=== PATIENT | female | born 1950 | race Caucasian/White ===

== ENCOUNTER 2017-11-21 12:18 | Emergency (ER) | payer OTHER, MEDICARE ==
[~2017-11-21] VITALS: Ht 170.2 cm; Wt 65.3 kg
--- NOTE | 2017-11-21 14:23 | RADIOLOGY REPORT ---
EXAMINATION: XR HUMERUS, RIGHT XR SHOULDER, RIGHT CLINICAL INFORMATION: Concern for humeral fracture. COMPARISON: None TECHNIQUE: 3 views of the right shoulder and 2 views of the right humerus. FINDINGS: RIGHT SHOULDER: Mildly impacted and comminuted humeral neck fracture which has minimal apex anterior angulation. Ossification injecting over the inferior rim of the glenoid may represent a small displaced fracture fragment. Glenohumeral alignment appears preserved. Mild acromioclavicular osteoarthritis. No abnormal soft tissue calcifications. RIGHT HUMERUS: Mildly impacted humeral neck fracture with mild apex anterior angulation. The remainder of the humerus is unremarkable. No abnormal soft tissue calcifications. IMPRESSION: Mildly impacted and comminuted humeral neck fracture. Mild acromioclavicular osteoarthritis.
--- NOTE | 2017-11-21 14:36 | ED UPPER/LOWER EXTREMITY COMPL ---
History of Present Illness General Chief Complaint: Upper Extremity Injury Stated Complaint: S/P FALL RT ARM PAIN Source: patient Exam Limitations: no limitations Vital Signs & Intake/Output Vital Signs & Intake/Output Vital Signs Date Time Temp Pulse Resp B/P B/P Pulse O2 O2 Flow FiO2 Mean Ox Delivery Rate 11/21 1438 Room Air 11/21 1245 97.8 73 16 168/95 97 Room Air Allergies Coded Allergies: NO KNOWN ALLERGIES (08/30/13) Reconcile Medications Ibuprofen 400 MG TABLET 1 TAB PO TID PRN PAIN Oxycodone HCl/Acetaminophen (Percocet 5-325 MG Tablet) 5 MG-325 MG TABLET 1 TAB PO BID PRN BREAKTHROUGH PAIN Triage Note: 67F C/O UPPER RIGHT ARM PAIN S/P FALL AT 0800 ONTO RIGHT SIDE ON THE ICE. DENIES HEADSTRIKE OR LOC. AMBULATES WITHOUT ISSUE. TOOK ASPIRIN 365 FOR PAIN AND IS ON COUMADIN. PAIN 09/08 Triage Nurses Notes Reviewed? yes Onset: Abrupt Duration: hour(s): (6) Timing: single episode today Severity: moderate, severe Pain/Injury Location: Left: Shoulder. Method of Injury: fall Modifying Factors: Worsens With: movement. HPI: This is a 67-year-old female presents to the ER for chief complaint of right shoulder pain since 8 AM. She states she was going to put mail mailbox when she slipped and fell and landed on her right shoulder. No head trauma or loss of consciousness. Shoulder has been hurting ever since. Worse with range of motion. She is right-hand dominant. No numbness or tingling. Denies any rib pain chest pain abdominal pain or back pain. Denies flank short of breath. She states she took an aspirin earlier in the day. Past History Travel History Traveled to [place] past 21 day No Medical History Any Pertinent Medical History? see below for history Neurological: NONE EENT: NONE Cardiovascular: myocardial infarction, [facility]W PACEM[employer]ER Respiratory: NONE Gastrointestinal: NONE Hepatic: NONE Renal: NONE Musculoskeletal: NONE Psychiatric: NONE Endocrine: NONE Blood Disorders: NONE Cancer(s): NONE Surgical History Surgical History: non-contributory Psychosocial History What is your primary language Albanian Tobacco Use: Never used Family History Hx Contributory? No Review of Systems Review of Systems Constitutional: Denies: chills, fever. EENTM: Reports: no symptoms. Respiratory: Denies: cough, short of breath. Cardiovascular: Denies: chest pain. Gastrointestinal/Abdominal: Reports: no symptoms. Genitourinary: Reports: no symptoms. Musculoskeletal: Denies: joint pain, joint swelling, muscle pain, muscle stiffness. Skin: Reports: no symptoms. Neurological/Psychological: Reports: no symptoms. Hematologic/Endocrine: Denies: bruising, bleeding, polyuria, polydipsia. Immunological: Reports: no symptoms. All Other Systems: Reviewed and Negative Physical Exam Physical Exam General Appearance: well developed/nourished, mild distress Head: atraumatic Eyes: Bilateral: PERRL, EOMI. Ears, Nose, Throat: normal pharynx, normal ENT inspection, hearing grossly normal Neck: normal inspection, supple Cardiovascular/Respiratory: regular rate/rhythm Peripheral Pulses: 2+ radial (R), 2+ radial (L) Back: normal inspection Shoulder Left: swelling, bone tenderness, deformity, pain, soft tissue tenderness, limited range of motion Shoulder Right: normal range of motion, normal inspection Elbow Left: normal range of motion, normal inspection Elbow Right: normal range of motion, normal inspection Hand Left: normal inspection, normal range of motion Hand Right: normal inspection, normal range of motion Skin: intact, normal color, warm/dry Lymphatic: no anterior cervical supriya Progress Differential Diagnosis: dislocation, fracture, sprain Plan of Care: Orders Procedure Date/time Status Durable Medical Equipment 11/21 1434 Active Current Medications Sig/Vanessa Start time Last Medication Dose Stop Time Status Admin Ondansetron HCl 4 MG ONCE ONE 11/21 1445 UNVr 11/21 (Zofran) 11/21 1446 1445 Oxycodone/ 1 TAB ONCE ONE 11/21 1445 UNVr 11/21 Acetaminophen 11/21 1446 1445 (Percocet) XRAY SHOWS PROX HUMERUS FRACTURE, SHOULDER IMMOBILIZER PLACED. ZOFRAN, PERCOCET ORDERED. Diagnostic Imaging: Viewed by Me: Radiology Read. Discussed w/RAD: Radiology Read. Radiology Impression: PATIENT: QUEENIE NOGUERA PRESENT AGE: 67 PATIENT ACCOUNT NO: [id number] : 52 LOCATION: [facility] ORDERING PHYSICIAN: William PUGH SERVICE DATE: 11/21/173 EXAM TYPE: RAD - XRY- HUMERUS, RIGHT; XRY-SHOULDER COMPLETE-RIGHT EXAMINATION: XR HUMERUS, RIGHT XR SHOULDER, RIGHT CLINICAL INFORMATION: Concern for humeral fracture. COMPARISON: None TECHNIQUE: 3 views of the right shoulder and 2 views of the right humerus. FINDINGS: RIGHT SHOULDER: Mildly impacted and comminuted humeral neck fracture which has minimal apex anterior angulation. Ossification injecting over the inferior rim of the glenoid may represent a small displaced fracture fragment. Glenohumeral alignment appears preserved. Mild acromioclavicular osteoarthritis. No abnormal soft tissue calcifications. RIGHT HUMERUS: Mildly impacted humeral neck fracture with mild apex anterior angulation. The remainder of the humerus is unremarkable. No abnormal soft tissue calcifications. IMPRESSION: Mildly impacted and comminuted humeral neck fracture. Mild acromioclavicular osteoarthritis. DICTATED BY: Mamadou Garcia MD DATE/TIME DICTATED:11/21/171415 OFFICE SERVICES COORDINATOR:HOMERO DATE/TIME TRANSCRIBED:11/21/171415 CONFIDENTIAL, DO NOT COPY WITHOUT APPROPRIATE AUTHORIZATION. <Electronically signed in Other Vendor System> SIGNED BY: Mamadou Garcia MD 11/21/17 1423 Departure Departure Time of Disposition: 1434 Disposition: HOME OR SELF CARE Condition: Stable Clinical Impression Primary Impression: Proximal humerus fracture Referrals: Kaylynn Stewart MD (PCP/Family) Additional Instructions: TAKE THE IBUPROFEN AND PERCOCET NEEDED USE THE SHOULDER IMMOBILIZER DIRECTED AND FOLLOW UP WITH THE ORTHOPEDIST LISTED RETURN TO THE ER FOR ANY CHANGING OR WORSENING SYMPTOMS Departure Forms: Customer Survey General Discharge Information Prescriptions: Current Visit Scripts Ibuprofen 1 TAB PO TID PRN PAIN #30 TAB Oxycodone HCl/Acetaminophen (Percocet 5-325 MG Tablet) 1 TAB PO BID PRN BREAKTHROUGH PAIN #10 TAB Procedures Splinting Location: LEFT ARM SHOULDER IMMOBILIZER Pre-Proc Neuro Vasc Exam: normal Post-Proc Neuro Vasc Exam: normal
[2017-11-21] MEDS ORDERED: IBUPROFEN400 M1 PO (14:38)
[2017-11-21] MEDS ORDERED: PERCOCET 5-3251 EACH PO (14:38)
[2017-11-21 14:54] VITALS: BP 169/77
== END 2017-11-21 14:59 ==
LOC: ERH 12:18
DX: S42.201A Unspecified fracture of upper end of right humerus, initial encounter for closed fracture (principal); W00.0XXA Fall on same level due to ice and snow, initial encounter; Y92.9 Unspecified place or not applicable; Y93.9 Activity, unspecified; Z79.01 Long term (current) use of anticoagulants
CPT/HCPCS: 73030-RT; 73060-RT; J3101